=== PATIENT | female | born 1985 | race Caucasian/White ===

== ENCOUNTER 2017-10-31 17:00 | Emergency (ER) | payer OTHER ==
[~2017-10-31] VITALS: Ht 152.4 cm; Wt 51.5 kg
[~2017-10-31 17:00] MED LIST: ACET-1256 PO; ALBUAER19 INH; CERT200K IM; LEVO75TA5 PO
[2017-10-31] MEDS ORDERED: AMPH20TA2 PO (17:07)
[2017-10-31] MEDS ORDERED: ATV/1 PO (17:08)
[2017-10-31 17:11] VITALS: TEMP 37; Ht 152.4 cm; Wt 51.5 kg
[2017-10-31] MEDS ORDERED: ONDANSETRON INJ 2 MG/ML 2 ML VIAL IV STA ×2 (17:49→22:16)
[2017-10-31] MEDS ORDERED: HYDROmorphone INJ 0.5 MG/0.5 ML SYR IV STA (17:49)
[2017-10-31 18:21] LABS: BASO % 0.7 %; BASO ABS # 0.06 K/uL (0-0.2); EOS % 2.3 %; EOS ABS # 0.19 K/uL (0-0.5); HEMATOCRIT 27.9 % (37-47); HEMOGLOBIN 8.7 g/dL (12.0-16.0); IG# 0.01 K/uL (0.00-0.02); LYMPH % 26.4 %; LYMPH ABS # 2.19 K/uL (1.2-3.4); MEAN CELL VOLUME 70.1 fL (80-100); MEAN CORPUSCULAR HEMOGLOBIN 21.9 pg (25-34); MEAN CORPUSCULAR HGB CONC 31.2 g/dl (32-36); MEAN PLATELET VOLUME 9.2 fL (7.4-10.4); MONO % 8.4 %; NEUT % 62.1 %; NEUT ABS # 5.14 K/uL (1.4-6.5); PLATELET COUNT 362 K/uL (130-400); RED CELL DISTRIBUTION WIDTH SD 43.8 fL (36.4-46.3); WHITE BLOOD COUNT 8.29 K/uL (4.8-10.8)
[2017-10-31 18:44] LABS: ALT/SGPT 14 U/L (12-78); BLOOD UREA NITROGEN 7 mg/dl (7-18); CALCIUM 8.6 mg/dl (8.5-10.1); CARBON DIOXIDE 25 mmol/L (21-32); CREATININE 0.81 mg/dl (0.60-1.20); GLUCOSE 78 mg/dl (70-99); LIPASE 144 U/L (73-393); POTASSIUM 3.3 mmol/L (3.5-5.1); SODIUM 134 mmol/L (136-145)
[2017-10-31 18:47] LABS: ALKALINE PHOSPHATASE 67 U/L (45-117); AST/SGOT 16 U/L (15-37); TOTAL PROTEIN 9.1 gm/dl (6.4-8.2)
[2017-10-31] MEDS ORDERED: VNTHFA/IN INH (19:19)
[2017-10-31] MEDS ORDERED: AMIT10TA6 PO (19:19)
[2017-10-31] MEDS ORDERED: OPTIRAY 320 IV PRN (19:30)
[2017-10-31] MEDS ORDERED: SODIUM CHLORIDE 0.9% 1000ML 1,000 ML IV STA (20:27)
--- NOTE | 2017-10-31 20:30 | DIAGNOSTIC IMAGING REPORT ---
PELVIS W/IV CONT ONLY (CT) HISTORY: 32 years-old Female presents with perianal swelling and concern for possible perianal abscess. COMPARISON: CT abdomen and pelvis 06/17/2016 TECHNIQUE: Multiple axial CT images of the pelvis were obtained following the intravenous administration of 115 mL Optiray 320. A dose lowering technique was used consistent with the principals of PIERCE. FINDINGS: There is moderate circumferential wall thickening of the rectum and also within the imaged distal portion of the descending colon with mild surrounding inflammatory stranding. There is moderate stool volume of the cecum. The terminal ileum is predominantly collapsed. The appendix is air-filled and appears noninflamed as seen on image 77 series 3. Appendiceal tip is not well seen. Uterus and adnexa are unremarkable. No definite pathologic adenopathy. Iliac vessels appear unremarkable. There is moderate perirectal inflammatory stranding. 1.1 x 0.7 cm hypoechoic collection with peripheral enhancement is seen within the right posterior perianal soft tissues as seen on image 194 series 3. Additionally, there is a slightly larger 1.6 x 1.0 cm collection within the right medial gluteal fold as seen on image 219 series 3 suggesting small abscess formations. The bones appear intact. IMPRESSION: 1. Moderate circumferential wall thickening of the rectum and imaged distal descending colon is suspicious for inflammatory bowel disease. 2. Small peripherally enhancing fluid collections of the perianal tissues and medial right gluteal fold suggest small abscess formations. 3. Normal appearance of the appendix. The above report was generated using voice recognition software. It may contain grammatical, syntax or spelling errors. Electronically signed by: Charlie Quintanilla M.D. 10/31/2017 8:28 PM Dictated Date/Time: 10/31/2017 8:18 PM
[2017-10-31 22:00] VITALS: BP 83/61; PULSE 87; O2SAT 92
[2017-10-31] MEDS ORDERED: METRONIDAZOLE 250 MG TAB PO STA (22:16)
[2017-10-31] MEDS ORDERED: AMOX875T PO (22:26)
[2017-10-31] MEDS ORDERED: METR-162 PO (22:26)
[2017-10-31] MEDS ORDERED: ONDA4TAB65 PO (22:26)
[2017-10-31] MEDS ORDERED: OXYC1TAB3 PO (22:27)
[2017-10-31] MEDS ORDERED: AMOXICILLIN/CLAVULANATE TAB 875 MG TAB PO ONE (22:30)
[2017-10-31] MEDS ORDERED: OXYCODONE IR HOME PACK PO ONE (22:30)
[2017-10-31] MEDS ORDERED: ONDANSETRON HOME PACK 4MG OD TAB PO ONE (22:30)
--- NOTE | 2017-11-01 00:32 | EMERGENCY ROOM VISIT NOTE ---
History Report prepared by Stefan: Davian Haines Under the Supervision of: Dr. Derek Hinton D.O. First contact with patient: 17:31 Chief Complaint: WOUND INFECTION Stated Complaint: CROHNS COMPLICATION/PERIANAL ABSCESS History of Present Illness The patient is a 32 year old female who presents to the Emergency Room with complaints of a worsening perianal abscess beginning yesterday. She has a history of similar symptoms associated with Crohn's disease. She was diagnosed with Crohn's 18 years ago. The patient noticed her symptoms initially due to pain with wiping. She believes she actually had two abscess, but one of them has already drained. She is currently on Cimzia for her Crohn's (started eight years ago). The patient also complains of nausea and chills. Her LNMP was a few weeks ago. Pt denies headache, change in vision, fevers, chest pain, shortness of breath, vomiting, diarrhea, pain with urination, and melena. Source of History: patient Onset: yesterday Position: other (Perianal) Quality: other (abscess) Timing: worsening Associated Symptoms: + chills, + nausea, No fevers, No headache, No chest pain, No SOB, No vomiting, No melena, No diarrhea, No urinary symptoms Review of Systems See HPI for pertinent positives & negatives. A total of 10 systems reviewed and were otherwise negative. Past Medical & Surgical Medical Problems: (1) Anemia (2) Colitis (3) Crohns disease Surgical Problems: (1) Previous section Family History Diabetes mellitus Hypertension Kidney disease Kidney stones Social History Smoking Status: Former Smoker Alcohol Use: none Marital Status: in relationship Housing Status: lives with family Occupation Status: employed Current/Historical Medications Scheduled Acetaminophen (Tylenol), 1,000 MG PO prn ud Amitriptyline Hcl (Elavil), 10 MG PO HS Amoxicillin & Pot Clavulanate (Augmentin 875-125 mg), 875 MG PO BID Amphetamine-Dextroamphetamine 20MG (Adderall 20MG), 20 MG PO BID Certolizumab Pegol (Cimzia), 200 MG IM Q2 WEEKS Metronidazole (Flagyl), 500 MG PO TID Ondansetron Hcl (Zofran), 4 MG PO PRN Scheduled PRN Albuterol Hfa (Ventolin Hfa), 2 PUFFS INH Q6H PRN for ALLERGY/ASTHMA Lorazepam (Ativan), 1 MG PO BID PRN for ANXIETY Oxycodone Immediate Rel Tab (Roxicodone Ir), 5 MG PO Q6H PRN for Pain Allergies Coded Allergies: Iron Dextran (Verified Allergy, Severe, ANAPHYLAXIS, 10/31/17) Shellfish (Verified Allergy, Severe, ANAPHYLAXIS, 10/31/17) Methylprednisolone (Verified Allergy, Intermediate, HIVES, 10/31/17) Sulfa Antibiotics (Verified Allergy, Intermediate, RASH, 10/31/17) Latex1 -Allergic Contact Dermititis (Verified Allergy, Mild, RASH, 10/31/17) Infliximab (Verified Adverse Reaction, Severe, ANAPHYLAXIS, 10/31/17) medicine induced lupus NSAIDs (Verified Adverse Reaction, Intermediate, BLEEDING, 10/31/17) Morphine (Verified Adverse Reaction, Unknown, DOESNT WORK, 10/31/17) Physical Exam Vital Signs Date Time Temp Pulse Resp B/P (MAP) Pulse Ox O2 Delivery O2 Flow Rate FiO2 10/31/17 22:00 87 20 83/61 92 Room Air 10/31/17 20:00 89 20 92/57 98 10/31/17 18:17 103 16 100/63 100 Room Air 10/31/17 17:11 37.0 79 16 106/71 99 Room Air Physical Exam GENERAL: Sitting up in bed, alert, well appearing, well nourished, no distress, non-toxic EYE EXAM: normal conjunctiva. OROPHARYNX: no exudate, no erythema, lips, buccal mucosa, and tongue normal and mucous membranes are moist NECK: supple, no nuchal rigidity, no adenopathy, non-tender LUNGS: Clear to auscultation. Normal chest wall mechanics HEART: Tachycardic rate, no murmurs, S1 normal and S2 normal ABDOMEN: abdomen soft, non-tender, normo-active bowel sounds, no masses, no rebound or guarding. BACK: Back is symmetrical on inspection and there is no deformity, no midline tenderness, no CVA tenderness. RECTAL: multiple large rectal hemorrhoids with a 2 cm fluctuance mass draining green, purulent discharge (8 o clock). 1.5 cm firm, fluctuance mass without drainage (7 o clock). SKIN: no rashes and no bruising UPPER EXTREMITIES: upper extremities are grossly normal. LOWER EXTREMITIES: No pitting edema. NEURO EXAM: Normal sensorium, cranial nerves II-XII grossly intact, normal speech, no gross weakness of arms, no gross weakness of legs. Medical Decision & Procedures ER Provider Diagnostic Interpretation: Radiology results as stated below per my review and the radiologist's interpretation: PELVIS W/IV CONT ONLY (CT) FINDINGS: There is moderate circumferential wall thickening of the rectum and also within the imaged distal portion of the descending colon with mild surrounding inflammatory stranding. There is moderate stool volume of the cecum. The terminal ileum is predominantly collapsed. The appendix is air-filled and appears noninflamed as seen on image 77 series 3. Appendiceal tip is not well seen. Uterus and adnexa are unremarkable. No definite pathologic adenopathy. Iliac vessels appear unremarkable. There is moderate perirectal inflammatory stranding. 1.1 x 0.7 cm hypoechoic collection with peripheral enhancement is seen within the right posterior perianal soft tissues as seen on image 194 series 3. Additionally, there is a slightly larger 1.6 x 1.0 cm collection within the right medial gluteal fold as seen on image 219 series 3 suggesting small abscess formations. The bones appear intact. IMPRESSION: 1. Moderate circumferential wall thickening of the rectum and imaged distal descending colon is suspicious for inflammatory bowel disease. 2. Small peripherally enhancing fluid collections of the perianal tissues and medial right gluteal fold suggest small abscess formations. 3. Normal appearance of the appendix. The above report was generated using voice recognition software. It may contain grammatical, syntax or spelling errors. Electronically signed by: Charlie Quintanilla M.D. 10/31/2017 8:28 PM Laboratory Results 10/31/17 18:05 Red Blood Count 3.98, Mean Corpuscular Volume 70.1, Mean Corpuscular Hemoglobin 21.9, Mean Corpuscular Hemoglobin Concent 31.2, Mean Platelet Volume 9.2, Neutrophils (%) (Auto) 62.1, Lymphocytes (%) (Auto) 26.4, Monocytes (%) (Auto) 8.4, Eosinophils (%) (Auto) 2.3, Basophils (%) (Auto) 0.7, Neutrophils # (Auto) 5.14, Lymphocytes # (Auto) 2.19, Monocytes # (Auto) 0.70, Eosinophils # (Auto) 0.19, Basophils # (Auto) 0.06 10/31/17 17:42 Test 2/6/18 17:42 10/31/17 18:05 10/31/17 19:45 Anion Gap 7.0 mmol/L (3-11) Est Creatinine Clear Calc Drug Dose 71.6 ml/min Estimated GFR () 111.4 Estimated GFR (Non- 96.1 BUN/Creatinine Ratio 8.0 (10-20) Calcium Level 8.6 mg/dl (8.5-10.1) Total Bilirubin 0.2 mg/dl (0.2-1) Direct Bilirubin < 0.1 mg/dl (0-0.2) Aspartate Amino Transf (AST/SGOT) 16 U/L (15-37) Alanine Aminotransferase (ALT/SGPT) 14 U/L (12-78) Alkaline Phosphatase 67 U/L (45-117) Total Protein 9.1 gm/dl (6.4-8.2) Albumin 3.0 gm/dl (3.4-5.0) Lipase 144 U/L (73-393) White Blood Count 8.29 K/uL (4.8-10.8) Red Blood Count 3.98 M/uL (4.2-5.4) Hemoglobin 8.7 g/dL (12.0-16.0) Hematocrit 27.9 % (37-47) Mean Corpuscular Volume 70.1 fL (80-100) Mean Corpuscular Hemoglobin 21.9 pg (25-34) Mean Corpuscular Hemoglobin Concent 31.2 g/dl (32-36) Platelet Count 362 K/uL (130-400) Mean Platelet Volume 9.2 fL (7.4-10.4) Neutrophils (%) (Auto) 62.1 % Lymphocytes (%) (Auto) 26.4 % Monocytes (%) (Auto) 8.4 % Eosinophils (%) (Auto) 2.3 % Basophils (%) (Auto) 0.7 % Neutrophils # (Auto) 5.14 K/uL (1.4-6.5) Lymphocytes # (Auto) 2.19 K/uL (1.2-3.4) Monocytes # (Auto) 0.70 K/uL (0.11-0.59) Eosinophils # (Auto) 0.19 K/uL (0-0.5) Basophils # (Auto) 0.06 K/uL (0-0.2) RDW Standard Deviation 43.8 fL (36.4-46.3) RDW Coefficient of Variation 17.0 % (11.5-14.5) Immature Granulocyte % (Auto) 0.1 % Immature Granulocyte # (Auto) 0.01 K/uL (0.00-0.02) Hypochromasia PRESENT Microcytosis PRESENT Urine Color YELLOW Urine Appearance TURBID (CLEAR) Urine pH 5.5 (4.5-7.5) Urine Specific [place] 1.020 (1.000-1.030) Urine Protein NEG (NEG) Urine Glucose (UA) NEG (NEG) Urine Ketones NEG (NEG) Urine Occult Blood NEG (NEG) Urine Nitrite NEG (NEG) Urine Bilirubin NEG (NEG) Urine Urobilinogen NEG (NEG) Urine Leukocyte Esterase MODERATE (NEG) Urine WBC (Auto) >30 /hpf (0-5) Urine RBC (Auto) 0-4 /hpf (0-4) Urine Hyaline Casts (Auto) 0 /lpf (0-5) Urine Epithelial Cells (Auto) >30 /lpf (0-5) Urine Bacteria (Auto) 1+ (NEG) Urine Pathogenic Casts /lpf (0) Urine Mucus PRESENT (NONE PRSENT) Urine Test NEG (NEG) Laboratory results per my review. Medications Administered Medications (Trade) Dose Ordered Sig/Mark Route Start Time Stop Time Status Last Admin Dose Admin Hydromorphone HCl (Dilaudid Inj) 0.5 mg NOW STAT IV 10/31/17 17:49 10/31/17 17:50 DC 10/31/17 18:14 0.5 MG Ondansetron HCl (Zofran Inj) 4 mg NOW STAT IV 10/31/17 17:49 10/31/17 17:50 DC 10/31/17 18:14 4 MG Sodium Chloride 1,000 ml @ 999 mls/hr Q1H1M STAT IV 10/31/17 20:27 10/31/17 21:27 DC 10/31/17 20:58 999 MLS/HR Oxycodone HCl (Roxicodone Immediate Rel 5MG Home Pack) 1 homepack UD ONCE PO 10/31/17 22:30 10/31/17 22:31 DC 10/31/17 22:39 1 HOMEPACK Metronidazole (Flagyl Tab) 2,000 mg NOW STAT PO 10/31/17 22:16 10/31/17 22:19 DC 10/31/17 22:38 2,000 MG Amoxicillin/ Clavulanate Potassium (Augmentin Tab) 875 mg NOW ONCE PO 10/31/17 22:30 10/31/17 22:31 DC 10/31/17 22:38 875 MG Ondansetron HCl (Zofran Inj) 4 mg NOW STAT IV 10/31/17 22:16 10/31/17 22:18 DC 10/31/17 22:38 4 MG Ondansetron HCl (ZOFRAN ODT 4MG Home Pack) 1 homepack UD ONCE PO 10/31/17 22:30 10/31/17 22:31 DC 10/31/17 22:39 1 HOMEPACK Amoxicillin/ Clavulanate Potassium (Augmentin Tab) 875 mg BID ONCE PO 11/01/17 09:00 11/01/17 09:00 DC 10/31/17 22:54 875 MG ED Course ED COURSE: Vital signs were reviewed and appeared normal. The patients medical record was reviewed The above diagnostic studies were performed and reviewed. ED treatments and interventions as stated above. 1735: The patient was evaluated in room C7. A complete history and physical examination was performed. 1749: Ordered Zofran Inj 4 mg IV, Dilaudid Inj 0.5 mg IV. 7: Ordered Sodium Chloride 1000 ml @ 999 mls/hr IV. 2216: Ordered Zofran Inj 4 mg IV, Flagyl Tab 2000 mg PO. 2210: Upon reevaluation, the patient is resting comfortably.I discussed my findings with the patient and she understands and agrees with the treatment plan. Based on the patients age, coexisting illnesses, exam and lab findings the decision to treat as an outpatient was made. The patient remained stable while under my care. The patient appeared well at the time of discharge. 2230: Ordered Zofran Odt 4 mg home pack PO, Augmentin Tab 875 mg PO, Roxicodone Immediate Rel 5 mg home pack PO. Medical Decision Differential diagnoses includes but is not limited to gastritis, peptic ulcer disease, GERD, gallbladder disease, pancreatitis, small bowel obstruction, acute coronary syndrome, pericarditis, ischemic bowel, irritable bowel disease, irritable bowel syndrome, appendicitis, diverticulitis, malignancy, hernia, urinary tract infection, torsion, /ectopic , perforation, trauma, infectious. Patient is a 30-year-old female who presents to ER for rectal abscesses. On exam she has 2 abscesses which is currently draining. She notes she follows with [facility]. Labs were obtained and show no leukocytosis. Hemoglobin was 8.7. Previous were 11 over 2 years ago. BMP all LFTs, bilirubin lipase is normal. UA was contaminated. was negative. CT confirms the abscesses. Patient did not want anybody to drain her abscesses as she notes her GI doctor instructed her not to have this done. I did discuss the case with the on-call GI physician at [facility]. He notes that they will follow her up as an outpatient. He was unable to access her records to give me her previous hemoglobins. Patient was placed on Flagyl and Augmentin per her request. I stressed importance of following up and continuing sitz baths. If that abscess worsens she will need to return to have that opened. Discussed with Pt concerning signs and symptoms to watch out for. Pt was instructed to follow up with their PCP and discussed with the patient their option to return to the ED at anytime for persistent or worsening symptoms. The appropriate anticipatory guidance and out-patient management, including indications for return to the emergency department, were explained at length to the patient and understood. [place] Drug Monitoring Program Search Results: patient reviewed within database, no issues identified Medication Reconcilliation Current Medication List: was personally reviewed by me Blood Pressure Screening Patient's blood pressure: Normal blood pressure Blood pressure disposition: Did not require urgent referral Consults Time Called: 2154 Consulting Physician: [facility] Returned Call: [phone] I discussed the patient's case with [facility]. They recommend antibiotic treatment with close follow-up. Impression Primary Impression: Diane-rectal abscess Additional Impressions: Hypokalemia Anemia Scribe Attestation The scribe's documentation has been prepared under my direction and personally reviewed by me in its entirety. I confirm that the note above accurately reflects all work, treatment, procedures, and medical decision making performed by me. Departure Information Dispostion Home / Self-Care Prescriptions Oxycodone Immediate Rel Tab (ROXICODONE IR) 5 Mg Tab 5 MG PO Q6H Y for Pain, #15 TAB Prov: Derek Hinton, DO 10/31/17 Ondansetron Hcl (ZOFRAN) 4 Mg Tab 4 MG PO PRN, #30 TAB Prov: Derek Hinton, DO 10/31/17 Metronidazole (FLAGYL) 500 Mg Tab 500 MG PO TID, #10 TAB Prov: Derek Hinton, DO 10/31/17 Amoxicillin & Pot Clavulanate (Augmentin 875-125 mg) 1 Tab Tab 875 MG PO BID for 10 Days, TAB Prov: Derek Hinton, DO 10/31/17 Referrals No Doctor, Assigned (PCP) Forms HOME CARE DOCUMENTATION FORM, IMPORTANT VISIT INFORMATION, WORK / SCHOOL INSTRUCTIONS Patient Instructions ED Diane Anal Abscess Abx Only, [facility] Additional Instructions Please follow up with your primary care doctor with in the next 24 hours. Any worsening of your symptoms, please return to the ED immediately. This includes any fevers greater than 100.4, worsening pain, chest pain, shortness breath, persistent nausea, vomiting, unable to eat or drink, please keep using warm soaks or any other concerning signs or symptoms from your standpoint. Please call your GI physician tomorrow for follow-up within the next 2-3 days. Your hemoglobin is low at 8.9. Please follow up and have this repeated in the next 48 hours. Please take antibiotics as prescribed. Problem Qualifiers Additional Impressions: Anemia Anemia type: unspecified type Qualified Codes: D64.9 - Anemia, unspecified
[2017-11-01] MEDS ORDERED: AMOXICILLIN/CLAVULANATE TAB 875 MG TAB PO ONE (09:00)
== END 2017-10-31 22:57 | disposition home or self-care (01) ==
LOC: C.EDB 17:05 → C.EDC 22:57
DX: K61.1 Rectal abscess (principal); E87.6 Hypokalemia; D64.9 Anemia, unspecified; K50.90 Crohn's disease, unspecified, without complications; Z83.3 Family history of diabetes mellitus; Z82.49 Family history of ischemic heart disease and other diseases of the circulatory system; Z84.1 Family history of disorders of kidney and ureter; Z87.891 Personal history of nicotine dependence; Z79.899 Other long term (current) drug therapy

== ENCOUNTER 2017-11-09 00:46 | Emergency (ER) | payer OTHER ==
[~2017-11-09] VITALS: Ht 153.7 cm; Wt 51.9 kg
[~2017-11-09 00:46] MED LIST changes: -ALBUAER19 INH; +AMIT10TA6 PO; +AMOX875T PO; +AMPH20TA2 PO; +ATV/1 PO; -LEVO75TA5 PO; +METR-162 PO; +ONDA4TAB65 PO; +OXYC1TAB3 PO; +VNTHFA/IN INH
[2017-11-09 00:51] VITALS: TEMP 36.8; Ht 153.7 cm; Wt 51.9 kg
[2017-11-09] MEDS ORDERED: ONDANSETRON INJ 2 MG/ML 2 ML VIAL IV STA (01:24)
[2017-11-09 01:59] LABS: BASO % 1.2 %; BASO ABS # 0.09 K/uL (0-0.2); EOS % 3.1 %; EOS ABS # 0.24 K/uL (0-0.5); HEMATOCRIT 29.1 % (37-47); IG# 0.01 K/uL (0.00-0.02); LYMPH % 37.9 %; LYMPH ABS # 2.91 K/uL (1.2-3.4); MEAN CELL VOLUME 70.6 fL (80-100); MEAN CORPUSCULAR HEMOGLOBIN 21.8 pg (25-34); MEAN CORPUSCULAR HGB CONC 30.9 g/dl (32-36); MONO % 9.5 %; MONO ABS # 0.73 K/uL (0.11-0.59); NEUT % 48.2 %; PLATELET COUNT 502 K/uL (130-400); RED CELL DISTRIBUTION WIDTH CV 17.7 % (11.5-14.5); RED CELL DISTRIBUTION WIDTH SD 45.3 fL (36.4-46.3); WHITE BLOOD COUNT 7.68 K/uL (4.8-10.8)
[2017-11-09 02:09] VITALS: O2SAT 95
[2017-11-09 02:17] LABS: INFLUENZA B ANTIGEN Neg for Influ B (NEG)
[2017-11-09 02:17] LABS: ALT/SGPT 15 U/L (12-78); AST/SGOT 18 U/L (15-37); BLOOD UREA NITROGEN 8 mg/dl (7-18); CALCIUM 8.6 mg/dl (8.5-10.1); CARBON DIOXIDE 27 mmol/L (21-32); GLUCOSE 99 mg/dl (70-99); LIPASE 139 U/L (73-393); POTASSIUM 3.1 mmol/L (3.5-5.1); SODIUM 137 mmol/L (136-145)
[2017-11-09 02:19] LABS: ALKALINE PHOSPHATASE 64 U/L (45-117); TOTAL PROTEIN 9.4 gm/dl (6.4-8.2)
[2017-11-09] MEDS ORDERED: POTASSIUM CHLORIDE 10 MEQ TABCR PO STA (02:44)
--- NOTE | 2017-11-09 04:22 | EMERGENCY ROOM VISIT NOTE ---
History First contact with patient: :07 Chief Complaint: OTHER COMPLAINT Stated Complaint: PERIANAL ABCESS,CHILLS,SWEATS,LEG/ANKLE/ARMS HURT History of Present Illness The patient is a 32 year old female who presents to the Emergency Room with complaints of subjective fever and chills with lower leg swelling for the past few days she has been on antibiotics for perirectal abscess. She states she is feeling better over the perirectal abscess. She was getting upset stomach with the Augmentin and was informed to stop this and continue the Flagyl. Patient suffers from Crohn's disease and follows with [facility] in [place]. Patient has no documented temperature. Patient denies chest pain, dyspnea, cough, congestion, abdominal pain, vomiting, diarrhea, sore throat, runny nose, headache, neck stiffness, black or blood in her stool. Patient does suffer from anemia. She has required blood transfusions in the past. Review of Systems An 10 system review of systems was completed with positives and pertinent negatives listed in the HPI. Past Medical/Surgical History Medical Problems: (1) Anemia (2) Colitis (3) Crohns disease Surgical Problems: (1) Previous section Family History Diabetes mellitus Hypertension Kidney disease Kidney stones Social History Smoking Status: Never Smoker Alcohol Use: none Marital Status: in relationship Housing Status: lives with family Occupation Status: employed Current/Historical Medications Scheduled Acetaminophen (Tylenol), 1,000 MG PO prn ud Amitriptyline Hcl (Elavil), 10 MG PO HS Amoxicillin & Pot Clavulanate (Augmentin 875-125 mg), 875 MG PO BID Amphetamine-Dextroamphetamine 20MG (Adderall 20MG), 20 MG PO BID Certolizumab Pegol (Cimzia), 200 MG IM Q2 WEEKS Metronidazole (Flagyl), 500 MG PO TID Ondansetron Hcl (Zofran), 4 MG PO PRN Scheduled PRN Albuterol Hfa (Ventolin Hfa), 2 PUFFS INH Q6H PRN for ALLERGY/ASTHMA Lorazepam (Ativan), 1 MG PO BID PRN for ANXIETY Oxycodone Immediate Rel Tab (Roxicodone Ir), 5 MG PO Q6H PRN for Pain Physical Exam Vital Signs Date Time Temp Pulse Resp B/P (MAP) Pulse Ox O2 Delivery O2 Flow Rate FiO2 11/09/17 03:52 100 18 104/69 97 Room Air 11/09/17 02:42 60 16 86/75 96 Room Air 11/09/17 02:19 78 11/09/17 02:09 95 Room Air 11/09/17 00:51 36.8 79 18 111/76 100 Room Air Physical Exam VITALS: Vitals are noted on the nurse's note and reviewed by myself. Vital signs stable. GENERAL: Pleasant female mildly pale appearing, in no acute distress, nondiaphoretic, well-developed well-nourished. SKIN: The skin was without rashes, erythema, edema, or bruising. There is no tenting of the skin. Capillary reflex less than 2 seconds. HEAD: Normocephalic atraumatic. EARS: External auditory canals clear, tympanic membranes pearly castaneda without erythema or effusion bilaterally. EYES: Pupils equal round and reactive to light and accommodation. Conjunctivae without injection, sclerae without icterus. Extraocular movements intact. NOSE: Patent, turbinates without inflammation or discharge. No sinus tenderness. MOUTH: Mucous membranes mildly dry. Pharynx without erythema or exudate. Uvula midline. Airway patent. Tongue does not deviate. NECK: Supple without nuchal rigidity. No lymphadenopathy. No thyromegaly. Cervical spine is nontender. No JVD. HEART: Regular rate and rhythm without murmurs gallops or rubs. LUNGS: Clear to auscultation bilaterally without wheezes, rales or rhonchi. No dullness to percussion. No retractions or accessory muscle use. ABDOMEN: Positive bowel sounds x 4. Normal tympanic percussion. Soft, nontender, without masses or organomegaly. Peña sign negative. No guarding or rebound tenderness. No CVA tenderness Rectal exam: Numerous nonthrombosed hemorrhoids without palpable abscess. MUSCULOSKELETAL: No muscle atrophy, erythema, noted. Trace pedal edema bilaterally. NEURO: Patient was alert and oriented to person place and time. Normal sensation to light and sharp touch. No focal neurological deficits. Medical Decision & Procedures Laboratory Results 11/09/17 01:47 Red Blood Count 4.12, Mean Corpuscular Volume 70.6, Mean Corpuscular Hemoglobin 21.8, Mean Corpuscular Hemoglobin Concent 30.9, Mean Platelet Volume 9.0, Neutrophils (%) (Auto) 48.2, Lymphocytes (%) (Auto) 37.9, Monocytes (%) (Auto) 9.5, Eosinophils (%) (Auto) 3.1, Basophils (%) (Auto) 1.2, Neutrophils # (Auto) 3.70, Lymphocytes # (Auto) 2.91, Monocytes # (Auto) 0.73, Eosinophils # (Auto) 0.24, Basophils # (Auto) 0.09 11/09/17 01:47 Test 11/09/17 01:45 11/09/17 01:46 11/09/17 01:47 Bedside Lactic Acid Venous 0.50 mmol/L (0.90-1.70) Urine Color DK YELLOW Urine Appearance CLEAR (CLEAR) Urine pH 5.5 (4.5-7.5) Urine Specific Ventress 1.035 (1.000-1.030) Urine Protein NEG (NEG) Urine Glucose (UA) NEG (NEG) Urine Ketones TRACE (NEG) Urine Occult Blood NEG (NEG) Urine Nitrite POS (NEG) Urine Bilirubin NEG (NEG) Urine Urobilinogen NEG (NEG) Urine Leukocyte Esterase SMALL (NEG) Urine WBC (Auto) 1-5 /hpf (0-5) Urine RBC (Auto) 0-4 /hpf (0-4) Urine Hyaline Casts (Auto) 5-10 /lpf (0-5) Urine Epithelial Cells (Auto) >30 /lpf (0-5) Urine Bacteria (Auto) NEG (NEG) Influenza Type A Antigen Neg for Influ A (NEG) Influenza Type B Antigen Neg for Influ B (NEG) White Blood Count 7.68 K/uL (4.8-10.8) Red Blood Count 4.12 M/uL (4.2-5.4) Hemoglobin 9.0 g/dL (12.0-16.0) Hematocrit 29.1 % (37-47) Mean Corpuscular Volume 70.6 fL (80-100) Mean Corpuscular Hemoglobin 21.8 pg (25-34) Mean Corpuscular Hemoglobin Concent 30.9 g/dl (32-36) Platelet Count 502 K/uL (130-400) Mean Platelet Volume 9.0 fL (7.4-10.4) Neutrophils (%) (Auto) 48.2 % Lymphocytes (%) (Auto) 37.9 % Monocytes (%) (Auto) 9.5 % Eosinophils (%) (Auto) 3.1 % Basophils (%) (Auto) 1.2 % Neutrophils # (Auto) 3.70 K/uL (1.4-6.5) Lymphocytes # (Auto) 2.91 K/uL (1.2-3.4) Monocytes # (Auto) 0.73 K/uL (0.11-0.59) Eosinophils # (Auto) 0.24 K/uL (0-0.5) Basophils # (Auto) 0.09 K/uL (0-0.2) RDW Standard Deviation 45.3 fL (36.4-46.3) RDW Coefficient of Variation 17.7 % (11.5-14.5) Immature Granulocyte % (Auto) 0.1 % Immature Granulocyte # (Auto) 0.01 K/uL (0.00-0.02) Hypochromasia PRESENT Anisocytosis PRESENT Microcytosis PRESENT Anion Gap 7.0 mmol/L (3-11) Est Creatinine Clear Calc Drug Dose 74.4 ml/min Estimated GFR () 113.1 Estimated GFR (Non- 97.6 BUN/Creatinine Ratio 9.6 (10-20) Calcium Level 8.6 mg/dl (8.5-10.1) Magnesium Level 2.1 mg/dl (1.8-2.4) Total Bilirubin 0.2 mg/dl (0.2-1) Direct Bilirubin < 0.1 mg/dl (0-0.2) Aspartate Amino Transf (AST/SGOT) 18 U/L (15-37) Alanine Aminotransferase (ALT/SGPT) 15 U/L (12-78) Alkaline Phosphatase 64 U/L (45-117) Total Protein 9.4 gm/dl (6.4-8.2) Albumin 3.0 gm/dl (3.4-5.0) Lipase 139 U/L (73-393) Thyroid Stimulating Hormone (TSH) 10.700 uIu/ml (0.300-4.500) Free Thyroxine 1.09 ng/dl (0.80-1.60) Human Chorionic Gonadotropin, Qual NEG (NEG) Medications Administered Medications (Trade) Dose Ordered Sig/Mark Route Start Time Stop Time Status Last Admin Dose Admin Ondansetron HCl (Zofran Inj) 4 mg NOW STAT IV 11/09/17 01:24 11/09/17 01:26 DC 11/09/17 01:58 4 MG Potassium Chloride (Klor-Con M10) 40 meq NOW STAT PO 11/09/17 02:44 11/09/17 02:46 DC 11/09/17 03:52 40 MEQ ED Course Prior records/ancillary studies reviewed and summarized above. Nursing notes reviewed. The patient's history was concerning for subjective fever and chills with leg swelling. Differential diagnosis: Etiologies such as rectal infection, anemia, metabolic, infection, hypo/ hyperglycemia, electrolyte abnormalities, cardiac sources, intracerebral event, toxicologic, neurologic, as well as others were entertained. Physical examination: As above. ER treatment provided: IV Lock IV fluids On reassessment the patient felt better. Diagnostics interpretation by me: ECG: Normal sinus, normal intervals, no acute ST-T wave changes. Impression normal sinus rhythm interpreted by myself The labs revealed improving anemia per chart review, negative lactic acid. Slightly low protein level. Elevated TSH. Negative hCG Urine concerning for contamination and sent for culture Hypokalemia and this was replaced orally Imaging studies: US SOFT TISSUE: Comparison: CT pelvis 10/31/17. Superficial 2 x 0.9 x 1.9 cm complex ovoid region at right aspect of gluteal fold and there is associated prominent peripheral vascularity. This likely represents phlegmonous changes and /or residual abscess. No definite evidence of abscess at the distal rectum. Radiologist: Leonardo Ridley MD Exam and history seem consistent with resolving perirectal abscess with improving anemia and slightly abnormal thyroid. 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 She is advised to keep it. She is advised to follow-up family care for further evaluation and workup for her abnormal thyroid test. Patient did not have an acute abdomen on exam. She is well- appearing. I do not believe she has a DVT. Patient is agreeable to this. She was offered an ultrasound but declines this at this time. Patient did not have acute abdomen on exam. She was tolerating fluids. She is advised to increase her fluid and protein intake and to follow-up as scheduled with hematology and family care within the next few days or here in the ER sooner for fevers, chest pain, difficulty breathing, worsening signs or symptoms or as needed. Patient had no urinary symptoms. I do believe this is a contaminant. Patient will wait for the urine culture if she needs antibiotics. By the evaluation outlined above emergent etiologies such as electrolyte abnormalities, cardiac sources, intracerebral event, toxologic, neurologic, abnormalities blood glucose, metabolic, as well as others were deemed relatively unlikely. The pt informed about the findings as listed above. All questions were answered and pleased with the treatment. Return instructions were outlined and the patient was discharged in stable condition. Referral: The patient was referred back to primary care physician for follow-up in 2 to 3 days for a recheck of the current condition. Case reviewed with my attending Case reviewed with my attending Medical Decision As above Medication Reconcilliation Current Medication List: was personally reviewed by me Blood Pressure Screening Patient's blood pressure: Normal blood pressure Impression Primary Impression: Anemia Additional Impressions: Hypokalemia Thyroid function test abnormal Departure Information Dispostion Home / Self-Care Condition GOOD Referrals No Doctor, Assigned (PCP) Patient Instructions [facility] Additional Instructions Your thyroid test was abnormal. Follow-up with family care for this. Increase your fluid and protein intake. Rest and drink plenty of fluids as tolerated. Continue current medications. Avoid strenuous activities and anything that worsens your pain. Resume normal activities once your symptoms resolve. Return to the ER immediately for worsening or persistent chills, abdominal pain , vomiting, fevers, chest pains, difficulty breathing, worsening of your condition, or as needed. Follow up with your primary physician in 2-3 days for a recheck of your current condition. Problem Qualifiers Primary Impression: Anemia Anemia type: unspecified type Qualified Codes: D64.9 - Anemia, unspecified
[2017-11-09 04:35] VITALS: BP 100/69; PULSE 78; O2SAT 97
--- NOTE | 2017-11-09 06:34 | DIAGNOSTIC IMAGING REPORT ---
GLUTEAL/RECTAL ULTRASOUND CLINICAL HISTORY: ? Rectal abscess COMPARISON STUDY: CT of the pelvis November 10, 2017. FINDINGS: Sonography of the gluteal/perirectal regions demonstrated a 2 x 0.9 x 1.9 cm subcutaneous hypoechoic focus of the right inferior gluteal fold which corresponds to the inferior rim enhancing fluid collection shown and CT of October 31, 2017. This is similar in size to prior exam. This has peripheral hypervascularity with minimal internal vascularity. No additional fluid collections were identified on this exam. The perirectal and perianal soft tissues are suboptimally assessed by sonography. No additional abscesses were identified. IMPRESSION: 2 x 0.9 x 1.9 cm right inferior gluteal fold hypoechoic abnormality which likely corresponds to the rim-enhancing fluid collection shown on CT of October 31, 2017. This favors a small abscess. Perirectal and perianal soft tissues suboptimally assessed by sonography but no additional abscesses identified. Electronically signed by: Collin Agarwal M.D. 11/09/2017 6:32 AM Dictated Date/Time: 11/09/2017 6:29 AM
== END 2017-11-09 04:37 | disposition home or self-care (01) ==
LOC: C.EDB 00:48 → C.EDA 04:37
DX: D64.9 Anemia, unspecified (principal); E87.6 Hypokalemia; R94.6 Abnormal results of thyroid function studies; R50.9 Fever, unspecified; M79.89 Other specified soft tissue disorders; K50.90 Crohn's disease, unspecified, without complications; Z79.899 Other long term (current) drug therapy; Z82.49 Family history of ischemic heart disease and other diseases of the circulatory system; Z83.3 Family history of diabetes mellitus; Z84.1 Family history of disorders of kidney and ureter

== ENCOUNTER 2018-01-17 18:10 | Inpatient (IN) | payer OTHER ==
[~2018-01-17] VITALS: Ht 165.1 cm; Wt 58.4 kg
[~2018-01-17 18:10] MED LIST changes: -AMOX875T PO; -METR-162 PO; -ONDA4TAB65 PO
[2018-01-17] MEDS ORDERED: SODIUM CHLORIDE 0.9% 1000ML 1,000 ML IV ONE (18:20)
[2018-01-17] MEDS ORDERED: PIPERACILLIN/TAZOBACTAM 4.5 GM/100ML D5W IV STA (18:20)
[2018-01-17] MEDS ORDERED: DAPTOmycin IV 0 MG in SODIUM CHLORIDE 0.9% 50ML 50 ML IV STA (18:20)
[2018-01-17] MEDS ORDERED: SODIUM CHLORIDE 0.9% 150ML 150 ML IV STA (18:22)
[2018-01-17] MEDS ORDERED: SODIUM CHLORIDE 0.9% 500ML 500 ML IV STA (18:22)
[2018-01-17] MEDS ORDERED: ACETAMINOPHEN 500 MG TAB PO STA (18:23)
[2018-01-17] MEDS ORDERED: HYDROmorphone INJ 0.5 MG/0.5 ML SYR IV STA ×2 (18:36→20:01)
[2018-01-17] MEDS ORDERED: ONDANSETRON INJ 2 MG/ML 2 ML VIAL IV STA (18:36)
--- NOTE | 2018-01-17 18:53 | DIAGNOSTIC IMAGING REPORT ---
CHEST ONE VIEW PORTABLE CLINICAL HISTORY: Sepsis COMPARISON STUDY: Chest CT June 17, 2016. FINDINGS: Lung volumes are at the lower limits of normal. No pneumothorax or pleural effusion is noted. There is no consolidation or evidence for pulmonary edema. Cardiac size is normal. Mediastinal contours are normal. IMPRESSION: No acute cardiopulmonary findings. Electronically signed by: Collin Agarwal M.D. 01/17/2018 6:52 PM Dictated Date/Time: 01/17/2018 6:51 PM
[2018-01-17 18:56] LABS: BASO % 0.7 %; BASO ABS # 0.05 K/uL (0-0.2); EOS % 1.3 %; HEMATOCRIT 35.8 % (37-47); HEMOGLOBIN 11.6 g/dL (12.0-16.0); IG# 0.02 K/uL (0.00-0.02); INR 1.1 (0.9-1.1); LYMPH % 6.3 %; LYMPH ABS # 0.47 K/uL (1.2-3.4); MEAN CELL VOLUME 79.7 fL (80-100); MEAN CORPUSCULAR HEMOGLOBIN 25.8 pg (25-34); MEAN CORPUSCULAR HGB CONC 32.4 g/dl (32-36); MEAN PLATELET VOLUME 8.7 fL (7.4-10.4); NEUT % 87.4 %; NEUT ABS # 6.56 K/uL (1.4-6.5); PLATELET COUNT 261 K/uL (130-400); PTT PATIENT 29.5 SECONDS (21.0-31.0); RED CELL DISTRIBUTION WIDTH CV 19.6 % (11.5-14.5); RED CELL DISTRIBUTION WIDTH SD 56.5 fL (36.4-46.3)
[2018-01-17] MEDS ORDERED: OPTIRAY 320 IV PRN (19:00)
[2018-01-17] MEDS ORDERED: DAPTOmycin IV 275 MG in SYRINGE 0 ML IV SCH (19:00)
[2018-01-17 19:05] LABS: ALBUMIN 3.3 gm/dl (3.4-5.0); ALT/SGPT 17 U/L (12-78); AST/SGOT 19 U/L (15-37); BLOOD UREA NITROGEN 9 mg/dl (7-18); CALCIUM 8.6 mg/dl (8.5-10.1); CARBON DIOXIDE 27 mmol/L (21-32); GLUCOSE 96 mg/dl (70-99); POTASSIUM 3.7 mmol/L (3.5-5.1); SODIUM 133 mmol/L (136-145)
[2018-01-17 19:10] LABS: ALKALINE PHOSPHATASE 81 U/L (45-117); CKMB < 0.5 ng/ml (0.5-3.6); TOTAL PROTEIN 8.9 gm/dl (6.4-8.2)
--- NOTE | 2018-01-17 19:10 | EMERGENCY ROOM VISIT NOTE ---
History Report prepared by Stefan: Darian Putnam Under the Supervision of: Dr. Segundo Feliciano M.D. First contact with patient: 18:18 Chief Complaint: FEVER Stated Complaint: HAD SURGERY TODAY, FEVER,CHILLS,HEADACHE History of Present Illness The patient is a 33 year old female who presents to the Emergency Room with complaints of a worsening fever beginning an hour prior to arrival. The patient' s mother states the patient had rectal surgery in [place] this morning. She reports the patient has a history of severe Crohn's Disease and takes Cimzia. The mother notes the patient has not had her medication in a month because of changes in health care. She states the patient is not in a flare. The mother reports the patient was placed under general anesthesia and has not had an abnormal reaction to it before. She notes the patient developed severe chills in the car after eating lunch. The mother states the patient's fingers and lips became blue. She reports they returned home and the patient had a fever of 99.5. The mother notes she gave the patient Tylenol, covered her in blankets, and gave her 20 minutes for the Tylenol to work. She states the patient's temperature jaimie to 101.8. The mother reports the patient developed a headache, her teeth were chattering, and her blood pressure is low. The patient denies abdominal pain, neck pain, and any other pain. She notes she has not been on steroids for her Crohn's in several years. The patient states she has a history of a and surgery for her lazy eye. Source of History: patient, parent (mother) Onset: one hour [employer] Symptom Intensity: 101.8 Quality: other (fever) Timing: worsening Associated Symptoms: + headache, No neck pain, No abdominal pain Note: Associated symptom: blue lips and fingers, chattering teeth, low blood pressure Review of Systems See HPI for pertinent positives & negatives. A total of 10 systems reviewed and were otherwise negative. Past Medical & Surgical Medical Problems: (1) Anemia (2) Colitis (3) Crohns disease Surgical Problems: (1) Previous section Family History Diabetes mellitus Hypertension Kidney disease Kidney stones Social History Smoking Status: Never Smoker Alcohol Use: none Marital Status: in relationship Housing Status: lives with family Occupation Status: employed Current/Historical Medications Scheduled Acetaminophen (Tylenol), 1,000 MG PO prn ud Amitriptyline Hcl (Elavil), 10 MG PO HS Amphetamine-Dextroamphetamine 20MG (Adderall 20MG), 20 MG PO BID Certolizumab Pegol (Cimzia), 200 MG IM Q2 WEEKS Scheduled PRN Albuterol Hfa (Ventolin Hfa), 2 PUFFS INH Q6H PRN for ALLERGY/ASTHMA Lorazepam (Ativan), 1 MG PO BID PRN for ANXIETY Oxycodone Immediate Rel Tab (Roxicodone Ir), 5 MG PO Q6H PRN for Pain Allergies Coded Allergies: Iron Dextran (Verified Allergy, Severe, ANAPHYLAXIS, 01/17/18) Shellfish (Verified Allergy, Severe, ANAPHYLAXIS, 01/17/18) Methylprednisolone (Verified Allergy, Intermediate, HIVES, 01/17/18) Sulfa Antibiotics (Verified Allergy, Intermediate, RASH, 01/17/18) Latex1 -Allergic Contact Dermititis (Verified Allergy, Mild, RASH, 01/17/18 ) Infliximab (Verified Adverse Reaction, Severe, ANAPHYLAXIS, 01/17/18) medicine induced lupus NSAIDs (Verified Adverse Reaction, Intermediate, BLEEDING, 01/17/18) Morphine (Verified Adverse Reaction, Unknown, DOESNT WORK, 01/17/18) Physical Exam Vital Signs Date Time Temp Pulse Resp B/P (MAP) Pulse Ox O2 Delivery O2 Flow Rate FiO2 01/17/18 21:31 90/57 01/17/18 21:16 97/60 01/17/18 21:10 113 13 97 01/17/18 21:01 97/60 01/17/18 20:46 89/53 01/17/18 20:40 115 15 93 01/17/18 20:31 92/59 01/17/18 20:16 37.6 121 15 95/62 95 Room Air 01/17/18 20:16 95/62 01/17/18 20:10 122 18 97 01/17/18 20:01 92/63 01/17/18 19:46 94/61 01/17/18 19:40 126 17 99 01/17/18 19:31 99/58 01/17/18 19:26 37.9 118 15 98/60 95 Room Air 01/17/18 19:16 98/60 01/17/18 19:13 108/64 01/17/18 19:13 122 01/17/18 18:49 100 Room Air 01/17/18 18:46 105/64 01/17/18 18:40 128 18 85 01/17/18 18:38 111/73 01/17/18 18:34 98/76 01/17/18 18:15 38.9 84 18 96/64 100 Room Air Physical Exam GENERAL: Awake, alert, well-appearing, in no acute distress HENT: Normocephalic, atraumatic. Oropharynx unremarkable. EYES: Normal conjunctiva. Sclera non-icteric. NECK: Supple. No nuchal rigidity. FROM. No JVD. No evidence of meningitis or encephalitis. RESPIRATORY: Clear to auscultation. CARDIAC: Regular rate, normal rhythm. Extremities warm and well perfused. Pulses equal. ABDOMEN: Soft, non-distended. No tenderness to palpation. No rebound or guarding. No masses. RECTAL: Performed in the presence of a female nurse. Stent was in place. Light amount of yellowish drainage from the stent. Surgical site was clean and intact. MUSCULOSKELETAL: Chest examination reveals no tenderness. The back is symmetrical on inspection without obvious abnormality. There is no CVA tenderness to palpation. No joint edema. LOWER EXTREMITIES: Calves are equal size bilaterally and non-tender. No edema. No discoloration. NEURO: Normal sensorium. No sensory or motor deficits noted. SKIN: No rash or jaundice noted. Medical Decision & Procedures ER Provider Diagnostic Interpretation: Radiology results as stated below per my review and radiologist interpretation: CHEST ONE VIEW PORTABLE CLINICAL HISTORY: Sepsis COMPARISON STUDY: Chest CT June 17, 2016. FINDINGS: Lung volumes are at the lower limits of normal. No pneumothorax or pleural effusion is noted. There is no consolidation or evidence for pulmonary edema. Cardiac size is normal. Mediastinal contours are normal. IMPRESSION: No acute cardiopulmonary findings. Electronically signed by: Collin Agarwal M.D. 01/17/2018 6:52 PM Dictated Date/Time: 01/17/2018 6:[address] OF THE ABDOMEN AND PELVIS WITH CONTRAST CLINICAL HISTORY: Sepsis. Fever. Chills. Status post rectal surgery today. COMPARISON STUDY: CT of the abdomen and pelvis June 17, [address] of the pelvis October 31, 2017. TECHNIQUE: Following IV administration of 116 mL of Optiray-320, axial images of the abdomen and pelvis were obtained from the lung bases to the proximal femurs. Images were reviewed in the axial, sagittal, and coronal planes. IV contrast was administered without complication. A dose lowering technique was utilized adhering to the principles of ALARA. CT DOSE: 366.07 mGycm FINDINGS: No pneumatosis, free air or portal venous gas is present. The liver, spleen, adrenal glands, kidneys and pancreas are normal. There is no biliary or pancreatic ductal dilatation. There is no evidence for a bowel obstruction. The appendix is normal. Note is made of moderate wall thickening with pericolonic infiltration involving the mid to distal descending colon as well as the sigmoid colon and rectum. This is similar to exam of October 31, 2017. There are a few prominent perirectal lymph nodes. There has been interval placement of a linear radiodensity along the posterior aspect at the anorectal junction suggestive of a seton which is just to the right of midline. This extends through a tiny 1.8 x 0.8 cm subcutaneous fluid collection of the medial fold of the right buttock. This seton appears appropriately positioned. This may reflect a tiny abscess or fistula. This was shown on previous exam of October 31, 2017. There is a dominant follicle within the left ovary. There are no suspicious osseous lesions. IMPRESSION: 1. Interval placement of a right perianal seton which extends through a tiny 1.8 x 0.8 cm subcutaneous fluid collection of the medial fold of the right buttock which may reflect a fistula or tiny abscess. Seton likely appropriately positioned. 2. No bowel obstruction. No pneumatosis, free air or portal venous gas. 3. Persistent wall thickening and pericolonic infiltration of the descending colon, sigmoid colon and rectum which favors inflammatory bowel disease. No significant change in appearance since exam of October 31, 2017. Electronically signed by: Collin Agarwal M.D. 01/17/2018 7:23 PM Dictated Date/Time: 01/17/2018 7:15 PM Laboratory Results 01/17/18 18:25 Red Blood Count 4.49, Mean Corpuscular Volume 79.7, Mean Corpuscular Hemoglobin 25.8, Mean Corpuscular Hemoglobin Concent 32.4, Mean Platelet Volume 8.7, Neutrophils (%) (Auto) 87.4, Lymphocytes (%) (Auto) 6.3, Monocytes (%) (Auto) 4.0, Eosinophils (%) (Auto) 1.3, Basophils (%) (Auto) 0.7, Neutrophils # (Auto) 6.56, Lymphocytes # (Auto) 0.47, Monocytes # (Auto) 0.30, Eosinophils # (Auto) 0.10, Basophils # (Auto) 0.05 01/17/18 18:25 Test 01/17/18 18:25 01/17/18 18:36 01/17/18 19:18 White Blood Count 7.50 K/uL (4.8-10.8) Red Blood Count 4.49 M/uL (4.2-5.4) Hemoglobin 11.6 g/dL (12.0-16.0) Hematocrit 35.8 % (37-47) Mean Corpuscular Volume 79.7 fL (80-100) Mean Corpuscular Hemoglobin 25.8 pg (25-34) Mean Corpuscular Hemoglobin Concent 32.4 g/dl (32-36) Platelet Count 261 K/uL (130-400) Mean Platelet Volume 8.7 fL (7.4-10.4) Neutrophils (%) (Auto) 87.4 % Lymphocytes (%) (Auto) 6.3 % Monocytes (%) (Auto) 4.0 % Eosinophils (%) (Auto) 1.3 % Basophils (%) (Auto) 0.7 % Neutrophils # (Auto) 6.56 K/uL (1.4-6.5) Lymphocytes # (Auto) 0.47 K/uL (1.2-3.4) Monocytes # (Auto) 0.30 K/uL (0.11-0.59) Eosinophils # (Auto) 0.10 K/uL (0-0.5) Basophils # (Auto) 0.05 K/uL (0-0.2) RDW Standard Deviation 56.5 fL (36.4-46.3) RDW Coefficient of Variation 19.6 % (11.5-14.5) Immature Granulocyte % (Auto) 0.3 % Immature Granulocyte # (Auto) 0.02 K/uL (0.00-0.02) Prothrombin Time 11.3 SECONDS (9.0-12.0) Prothromb Time International Ratio 1.1 (0.9-1.1) Activated Partial Thromboplast Time 29.5 SECONDS (21.0-31.0) Partial Thromboplastin Ratio 1.1 Anion Gap 6.0 mmol/L (3-11) Est Creatinine Clear Calc Drug Dose 63.9 ml/min Estimated GFR () 97.4 Estimated GFR (Non- 84.0 BUN/Creatinine Ratio 10.6 (10-20) Calcium Level 8.6 mg/dl (8.5-10.1) Total Bilirubin 0.2 mg/dl (0.2-1) Aspartate Amino Transf (AST/SGOT) 19 U/L (15-37) Alanine Aminotransferase (ALT/SGPT) 17 U/L (12-78) Alkaline Phosphatase 81 U/L (45-117) Total Creatine Kinase 61 U/L (26-192) Creatine Kinase MB < 0.5 ng/ml (0.5-3.6) Creatine Kinase MB Ratio (0-3.0) Troponin I < 0.015 ng/ml (0-0.045) Total Protein 8.9 gm/dl (6.4-8.2) Albumin 3.3 gm/dl (3.4-5.0) Globulin 5.6 gm/dl (2.5-4.0) Albumin/Globulin Ratio 0.6 (0.9-2) Human Chorionic Gonadotropin, Qual NEG (NEG) Bedside Lactic Acid Venous 0.92 mmol/L (0.90-1.70) Influenza Type A Antigen Neg for Influ A (NEG) Influenza Type B Antigen Neg for Influ B (NEG) Labs reviewed by ED physician. Medications Administered Medications (Trade) Dose Ordered Sig/Mark Route Start Time Stop Time Status Last Admin Dose Admin Sodium Chloride 1,000 ml @ 999 mls/hr Q1H1M ONCE IV 01/17/18 18:20 01/17/18 19:20 DC 01/17/18 18:35 999 MLS/HR Piperacillin Sod/ Tazobactam Sod (Zosyn Iv) 4.5 gm ONE STAT IV 01/17/18 18:20 01/17/18 18:23 DC 01/17/18 18:40 4.5 GM Sodium Chloride 150 ml @ 999 mls/hr Q10M STAT IV 01/17/18 18:22 01/17/18 18:31 DC 01/17/18 18:35 999 MLS/HR Sodium Chloride 500 ml @ 999 mls/hr Q31M STAT IV 01/17/18 18:22 4/25/18 18:52 DC 01/17/18 18:35 999 MLS/HR Acetaminophen (Tylenol Tab) 1,000 mg NOW STAT PO 01/17/18 18:23 01/17/18 18:24 DC 01/17/18 18:41 1,000 MG Hydromorphone HCl (Dilaudid Inj) 0.5 mg NOW STAT IV 01/17/18 18:36 01/17/18 18:43 DC 01/17/18 19:23 0.5 MG Ondansetron HCl (Zofran Inj) 4 mg NOW STAT IV 01/17/18 18:36 01/17/18 18:43 DC 01/17/18 19:23 4 MG Daptomycin 275 mg/ Syringe 5.5 ml @ 2.75 mls/ min 1900 IV 01/17/18 19:00 01/17/18 19:01 DC 01/17/18 19:12 2.75 MLS/MIN Sodium Chloride 1,000 ml @ 125 mls/hr Q8H STAT IV 01/17/18 19:19 01/18/18 03:18 01/17/18 19:24 125 MLS/HR Hydromorphone HCl (Dilaudid Inj) 0.5 mg NOW STAT IV 01/17/18 20:01 01/17/18 20:02 DC 01/17/18 20:12 0.5 MG ECG Per My Interpretation Indication: other (sepsis) Rate (beats per minute): 113 Rhythm: sinus tachycardia Findings: other (No ST elevation or depression. Normal axis) ED Course 1818: Past medical records reviewed. The patient was evaluated in room A11A. A complete history and physical examination was performed. 1820: Ordered Zosyn 4.5gm IV, Sodium Chloride 1000 ml @ 999 mls/hr IV 1822: Ordered Sodium Chloride 500 ml @ 999 mls/hr IV, Sodium Chloride 150 ml @ 999 mls/hr IV 1823: Ordered Acetaminophen 1000mg PO 1836: Ordered Ondansetron HCl 4mg IV, Hydromorphone HCl 0.5mg IV 1848: I discussed the patient's case with Dr. Cormier, Anesthesia. He states be aware of muscle rigidity and break down of muscle in the patient's urine. I noted the patient did not have these symptoms. 1850: I discussed the patient's case with Dr. Galindo, Colorectal Surgeon. She accepted the patient for transfer and further evaluation. 0: Ordered Daptomycin 275mg/Syringe 5.5 ml @ 2.75 mls/min Protocol IV 1918: Ordered Sodium Chloride 1000 ml @ 125 mls/hr IV 1999: I reevaluated the patient. She is requesting more pain medication. 2000: Ordered Hydromorphone HCl 0.5mg IV 2010: I received a call back from Dr. Galindo, Colorectal Surgeon. She states she will no longer accept the patient. She believes it is a SIRS reaction and the patient may be sent home. The transfer was cancelled. 2013: I reevaluated the patient and discussed my consult with her and her mother. The mother is disappointed in the surgeon's decision. 2020: I discussed the patient's case with Dr. Ortiz, [facility] Hospitalist. He suggests I contact ICU. 2023: I discussed the patient's case with Dr. Lemus, ICU. He will evaluate the patient for further management and care. 2025: I discussed my consults with the patient and her mother. They are in agreement with the treatment plan. The patient will be evaluated for further management and care. 2042: Dr. Lemus evaluated the patient. He will accept the patient and consult the hospitalist. Medical Decision Differential diagnosis: Etiologies such as sepsis, UTI, pneumonia, metabolic, electrolyte abnormalities , cardiac sources, intracerebral event, toxicologic, neurologic, as well as others were entertained. This is a 33-year-old female that presents the emergency department febrile hypotensive and tachycardic after having surgery earlier today. Due to the nature of the patient's presentation of sepsis alert was immediately initiated. Patient was given 30 mL's per kilogram of fluid normal saline. A lactic acid was obtained. The patient does not have an elevation in her white blood cell count and a CAT scan of the abdomen and pelvis does not show any acute process. I did discuss this patient's results with her surgeon production analyst at [facility] who initially accepted the patient however on-call back is now refusing to take the patient despite the patient still being febrile tachycardic and hypotensive. For this reason I did discuss the case with the hospitalist here as well as the health coach who agreed to have the patient admitted. Patient and family were in agreement with the treatment plan. Medication Reconcilliation Current Medication List: was personally reviewed by me Blood Pressure Screening Patient's blood pressure: Low blood pressure Monitored by hospitalist and transfer team. Consults Time Called: 1847 Consulting Physician: Dr. Cormier, Anesthesia Returned Call: 1847 I discussed the patient's case with Zach Arnold. He states be aware of muscle rigidity and break down of muscle in the patient's urine. I noted the patient did not have these symptoms. Additional Consults: Time Called: 1841 Consulted Physician: Dr. Galindo, Colorectal Surgeon Returned Call: 1849 Additional Comments: I discussed the patient's case with Dr. Galindo, Colorectal Surgeon. She accepted the patient for transfer and further evaluation. 2010: I received a call back from Dr. Galindo, Colorectal Surgeon. She states she will no longer accept the patient. She believes it is a SIRS reaction and the patient may be sent home. The transfer was cancelled. Time Called: 2018 Consulted Physician: Yanci Vides Hospitalist Returned Call: 2020 Additional Comments: I discussed the patient's case with Yanci Vides Hospitalist. He suggests I contact ICU. Impression Primary Impression: Sepsis Scribe Attestation The scribe's documentation has been prepared under my direction and personally reviewed by me in its entirety. I confirm that the note above accurately reflects all work, treatment, procedures, and medical decision making performed by me. Departure Information Dispostion Being Evaluated By Hospitalist Referrals Nito Moseley M.D. (PCP) Patient Instructions My [facility] Sepsis Post Crystalloid Evaluation Date: Jan 17, 2018 Time: 18:19 Capillary Refill Exam Delayed (2 seconds or longer) Cardiopulmonary Evaluation Lung Exam: chest non-tender, lungs clear, normal breath sounds, no respiratory distress, no accessory muscle use Heart Exam: no edema, no gallop, no JVD, no murmur, + tachycardia Passive Leg Raise Negative (normal) Peripheral Pulse Evaluation Bounding, Increased Skin Exam Unremarkable Vitals Last Vital Signs Documentation Date Time Temp Pulse Resp B/P (MAP) Pulse Ox O2 Delivery O2 Flow Rate FiO2 01/17/18 21:31 90/57 01/17/18 21:10 113 13 97 01/17/18 20:16 37.6 Room Air Presence Of Septic Shock Problem Qualifiers Primary Impression: Sepsis Sepsis type: sepsis due to unspecified organism Qualified Codes: A41.9 - Sepsis, unspecified organism
[2018-01-17] MEDS ORDERED: SODIUM CHLORIDE 0.9% 1000ML 1,000 ML IV STA (19:19)
--- NOTE | 2018-01-17 19:25 | DIAGNOSTIC IMAGING REPORT ---
CT OF THE ABDOMEN AND PELVIS WITH CONTRAST CLINICAL HISTORY: Sepsis. Fever. Chills. Status post rectal surgery today. COMPARISON STUDY: CT of the abdomen and pelvis June 17, [address] of the pelvis October 31, 2017. TECHNIQUE: Following IV administration of 116 mL of Optiray-320, axial images of the abdomen and pelvis were obtained from the lung bases to the proximal femurs. Images were reviewed in the axial, sagittal, and coronal planes. IV contrast was administered without complication. A dose lowering technique was utilized adhering to the principles of ALARA. CT DOSE: 366.07 mGycm FINDINGS: No pneumatosis, free air or portal venous gas is present. The liver, spleen, adrenal glands, kidneys and pancreas are normal. There is no biliary or pancreatic ductal dilatation. There is no evidence for a bowel obstruction. The appendix is normal. Note is made of moderate wall thickening with pericolonic infiltration involving the mid to distal descending colon as well as the sigmoid colon and rectum. This is similar to exam of October 31, 2017. There are a few prominent perirectal lymph nodes. There has been interval placement of a linear radiodensity along the posterior aspect at the anorectal junction suggestive of a seton which is just to the right of midline. This extends through a tiny 1.8 x 0.8 cm subcutaneous fluid collection of the medial fold of the right buttock. This seton appears appropriately positioned. This may reflect a tiny abscess or fistula. This was shown on previous exam of October 31, 2017. There is a dominant follicle within the left ovary. There are no suspicious osseous lesions. IMPRESSION: 1. Interval placement of a right perianal seton which extends through a tiny 1.8 x 0.8 cm subcutaneous fluid collection of the medial fold of the right buttock which may reflect a fistula or tiny abscess. Seton likely appropriately positioned. 2. No bowel obstruction. No pneumatosis, free air or portal venous gas. 3. Persistent wall thickening and pericolonic infiltration of the descending colon, sigmoid colon and rectum which favors inflammatory bowel disease. No significant change in appearance since exam of October 31, 2017. Electronically signed by: Collin Agarwal M.D. 01/17/2018 7:23 PM Dictated Date/Time: 01/17/2018 7:15 PM
[2018-01-17 19:51] LABS: INFLUENZA B ANTIGEN Neg for Influ B (NEG)
--- NOTE | 2018-01-17 21:24 | Critical Care Consultation ---
Critical Care Consultation Date of Consultation: Jan 17, 2018. Attending Physician: Segundo Feliciano Reason for Consultation: Sepsis alert History of Present Illness Patient is a 33-year-old female with significant past medical history for Crohn' s disease who underwent a operative procedure today in [place] at [facility]. She presented to the emergency department secondary to a fever and increasing pain. She was evaluated as a sepsis alert secondary to tachycardia and relative hypotension. She received a fluid bolus, blood cultures, CT scan of the abdomen and pelvis which I have reviewed. The patient reports that she is on a disease modifying reagin however she has not taken it within the last month due to insurance changes. She normally gets her care at [facility] secondary to originally being diagnosed at about the age of 16 and referral to [place] secondary to lack of pediatric gastroenterology specialist. Reported procedure was dilation of significant amount of rectal scar tissue, the patient reports that she could only pass pencil size stools, drainage of a known perirectal abscess and placement of a seton. Currently the patient denies chest pain, she does admit to fever, she is having increasing pain in the rectal area. Her biggest concern is that she does not want to diet she has never felt this poorly before. I was asked to evaluate the patient for possible sepsis etiology. Of note the ED physician did contact the [facility] surgeon for possible transfer given the recent procedure and transfer was denied by the surgeon. Patient also reports that the current pain is not synonymous with her prior Crohn's flares. Past Medical/Surgical History Crohn's disease Family History Diabetes mellitus Hypertension Kidney disease Kidney stones Social History Smoking Status: Never Smoker Marital Status: in relationship Housing Status: lives with family Occupation Status: employed Allergies Coded Allergies: Iron Dextran (Verified Allergy, Severe, ANAPHYLAXIS, 01/17/18) Shellfish (Verified Allergy, Severe, ANAPHYLAXIS, 01/17/18) Methylprednisolone (Verified Allergy, Intermediate, HIVES, 01/17/18) Sulfa Antibiotics (Verified Allergy, Intermediate, RASH, 01/17/18) Latex1 -Allergic Contact Dermititis (Verified Allergy, Mild, RASH, 01/17/18 ) Infliximab (Verified Adverse Reaction, Severe, ANAPHYLAXIS, 01/17/18) medicine induced lupus NSAIDs (Verified Adverse Reaction, Intermediate, BLEEDING, 01/17/18) Morphine (Verified Adverse Reaction, Unknown, DOESNT WORK, 01/17/18) Home Medications Scheduled Acetaminophen (Tylenol), 1,000 MG PO prn ud Amitriptyline Hcl (Elavil), 10 MG PO HS Amphetamine-Dextroamphetamine 20MG (Adderall 20MG), 20 MG PO BID Certolizumab Pegol (Cimzia), 200 MG IM Q2 WEEKS Scheduled PRN Albuterol Hfa (Ventolin Hfa), 2 PUFFS INH Q6H PRN for ALLERGY/ASTHMA Lorazepam (Ativan), 1 MG PO BID PRN for ANXIETY Oxycodone Immediate Rel Tab (Roxicodone Ir), 5 MG PO Q6H PRN for Pain Current Inpatient Medications Current Inpatient Medications Medications (Trade) Dose Ordered Sig/Mark Route Start Time Stop Time Status Last Admin Dose Admin Ioversol (Optiray 320) 100 ml UD PRN IV 01/17/18 19:00 01/21/18 18:59 Sodium Chloride 1,000 ml @ 125 mls/hr Q8H STAT IV 01/17/18 19:19 01/18/18 03:18 01/17/18 19:24 125 MLS/HR Review of Systems A 10 point review of systems has been obtained and is otherwise negative. Constitutional: + fever, + chills, + sweats, + problem reported (Reiger's) Respiratory: No cough, No sputum, No wheezing, No shortness of breath, No dyspnea on exertion, No dyspnea at rest Cardiovascular: No chest pain, No orthopnea, No PND, No edema, No claudication , No palpitations, No problem reported Abdomen: + pain, No nausea, No vomiting, No diarrhea, No constipation Musculoskeletal: No joint pain, No muscle pain, No swelling, No calf pain, No problem reported Genitourinary - Female: No dysuria, No urinary frequency, No urinary urgency, No urinary incontinence, No urinary retention, No hematuria, No dysmenorrhea, No menorrhagia, No metrorrhagia, No rash, No vaginal bleeding, No vaginal discharge, No vaginal itching, No vulvodynia, No , No problem reported Neurologic: No memory loss, No paralysis, No weakness, No numbness/tingling, No vertigo, No balance problems, No problem reported Psychiatric: No depression symptoms, No anhedonism, No anxiety, No insomnia, No substance abuse, No problem reported Hematologic / Lymphatic: No abnormal bleeding/bruising, No clotting problems, No swollen lymph nodes, No night sweats, No problem reported Physical Exam Date Time Temp Pulse Resp B/P (MAP) Pulse Ox O2 Delivery O2 Flow Rate FiO2 01/17/18 20:16 37.6 121 15 95/62 95 Room Air 01/17/18 19:26 37.9 118 15 98/60 95 Room Air 01/17/18 19:13 122 01/17/18 18:49 100 Room Air 01/17/18 18:15 38.9 84 18 96/64 100 Room Air General: Alert. nontoxic. Skin: Warm to touch, dry, Head: Atraumatic Ears, nose, mouth and throat: airway patent Cardiovascular: Normal peripheral perfusion Respiratory: no respiratory distress Gastrointestinal: Non distended Musculoskeletal: No deformity Rectal exam completed in the presence of Antonella Simco: Placement of seton, no evidence of cellulitis surrounding the seton, no evidence of bleeding, no evidence of purulent drainage. Of note there are significant hemorrhoids Laboratory Results Last 24 Hours Test 01/17/18 18:25 01/17/18 18:36 01/17/18 19:18 White Blood Count 7.50 K/uL Red Blood Count 4.49 M/uL Hemoglobin 11.6 g/dL Hematocrit 35.8 % Mean Corpuscular Volume 79.7 fL Mean Corpuscular Hemoglobin 25.8 pg Mean Corpuscular Hemoglobin Concent 32.4 g/dl Platelet Count 261 K/uL Mean Platelet Volume 8.7 fL Neutrophils (%) (Auto) 87.4 % Lymphocytes (%) (Auto) 6.3 % Monocytes (%) (Auto) 4.0 % Eosinophils (%) (Auto) 1.3 % Basophils (%) (Auto) 0.7 % Neutrophils # (Auto) 6.56 K/uL Lymphocytes # (Auto) 0.47 K/uL Monocytes # (Auto) 0.30 K/uL Eosinophils # (Auto) 0.10 K/uL Basophils # (Auto) 0.05 K/uL RDW Standard Deviation 56.5 fL RDW Coefficient of Variation 19.6 % Immature Granulocyte % (Auto) 0.3 % Immature Granulocyte # (Auto) 0.02 K/uL Prothrombin Time 11.3 SECONDS Prothromb Time International Ratio 1.1 Activated Partial Thromboplast Time 29.5 SECONDS Partial Thromboplastin Ratio 1.1 Sodium Level 133 mmol/L Potassium Level 3.7 mmol/L Chloride Level 100 mmol/L Carbon Dioxide Level 27 mmol/L Anion Gap 6.0 mmol/L Blood Urea Nitrogen 9 mg/dl Creatinine 0.90 mg/dl Est Creatinine Clear Calc Drug Dose 63.9 ml/min Estimated GFR () 97.4 Estimated GFR (Non- 84.0 BUN/Creatinine Ratio 10.6 Random Glucose 96 mg/dl Calcium Level 8.6 mg/dl Total Bilirubin 0.2 mg/dl Aspartate Amino Transf (AST/SGOT) 19 U/L Alanine Aminotransferase (ALT/SGPT) 17 U/L Alkaline Phosphatase 81 U/L Total Creatine Kinase 61 U/L Creatine Kinase MB < 0.5 ng/ml Creatine Kinase MB Ratio Troponin I < 0.015 ng/ml Total Protein 8.9 gm/dl Albumin 3.3 gm/dl Globulin 5.6 gm/dl Albumin/Globulin Ratio 0.6 Human Chorionic Gonadotropin, Qual NEG Bedside Lactic Acid Venous 0.92 mmol/L Influenza Type A Antigen Neg for Influ A Influenza Type B Antigen Neg for Influ B Diagnostic Results IMPRESSION: 1. Interval placement of a right perianal seton which extends through a tiny 1.8 x 0.8 cm subcutaneous fluid collection of the medial fold of the right buttock which may reflect a fistula or tiny abscess. Seton likely appropriately positioned. 2. No bowel obstruction. No pneumatosis, free air or portal venous gas. 3. Persistent wall thickening and pericolonic infiltration of the descending colon, sigmoid colon and rectum which favors inflammatory bowel disease. No significant change in appearance since exam of October 31, 2017. Assessment & Plan Fever -This is likely secondary to being post procedure -Patient had disruption of significant amount of scar tissue and rectum -Underwent drainage of perirectal abscess -Placement of seton -Possibly underwent MAC anesthesia -I do not feel that the patient is currently septic, her lactic acid is normal, her blood pressure is consistent with prior blood pressure readings in prior ED visit records -The patient has not been taking her medications for over a month and I think certainly think she can mount an adequate immune response I discussed this opinion with both the hospitalist as well as the emergency room physician. At this point I do not feel the patient needs additional critical care needs please feel free to contact us with any additional questions
[2018-01-17] MEDS ORDERED: ALBUTEROL HFA 8 GM INHALER INH PRN (21:45)
[2018-01-17] MEDS ORDERED: POLYETHYLENE (MIRALAX) 17 GM PACK PO PRN (21:45)
[2018-01-17] MEDS ORDERED: LORAZEPAM 1 MG TAB PO PRN (21:45)
[2018-01-17] MEDS ORDERED: ALUMINUM/MAGNESIUM/SIMETH (MAALOX MAX) 30 ML UDC PO PRN (21:45)
[2018-01-17] MEDS ORDERED: ACETAMINOPHEN 325 MG TAB PO PRN (21:45)
[2018-01-17] MEDS ORDERED: PIPERACILL/TAZOBAC CONSULT ACTIVE PRN ×2 (21:45→23:00)
[2018-01-17] MEDS ORDERED: NITROGLYCERIN 0.4 MG SL PER TAB CHARGE SL PRN (21:45)
[2018-01-17 23:04] VITALS: BP 91/62; PULSE 120; TEMP 37.8; O2SAT 97; Ht 165.1 cm; Wt 58.4 kg
--- NOTE | 2018-01-17 23:10 | HISTORY & PHYSICAL EXAMINATION ---
DATE OF ADMISSION: 01/17/2018 CHIEF COMPLAINT: Fever. HISTORY OF PRESENT ILLNESS: This is a 33-year-old female with past medical history significant for severe chron's disease rectovaginal fistula, hypothyroidism, presents with fever and chills. The patient hqad a procedure done in [facility] today, where she follows for Crohn's disease. She had a right perianal seton placed and she got discharged and before she came to the home, she started feeling chilly . She thought her fingers turned somewhat blue. She went home and has temperature spike and she took Tylenol, but temperature was not breaking in. She was brought into the ER. Initially sepsis alert was called in as she was tachycardic and somewhat hypotensive, but CAT scan abdomen and pelvis was unremarkable. No white count. Lactic acid is normal. The patient , somewhat tachycardic at times, had a temp spike in the ER too. ER physician tried to call [facility] surgeon on-call, but they refused to accept the patient, they thought that the patient has SIRS. Also evaluated by critical care in the ER and thought her presentation mostly form reported procedure of dilatation of significant amount of rectal scar tissue and most likely not septic. Currently , patient is resting comfortably. Has some headaches. Denies any cough. No earache. No runny nose. No chest pain. No shortness of breath. No nausea, no vomiting, no abdominal pain except for some mild discomfort at procedure site. Denies any blood in the stool. No swelling in the legs. PAST MEDICAL HISTORY: As mentioned above. MEDICATIONS: The patient is on albuterol 2 inhalations 4 times daily as needed, Elavil 10 mg p.o. at bedtime, hydrocodone/acetaminophen 5/325 mg 1 tablet every 6 hours p.r.n., levothyroxine 75 mcg p.o. daily, Cimzia 200 mg IM q. 2 weeks. FAMILY HISTORY: Significant for mother had heart disorder, anxiety, thyroid disorder. Father has high cholesterol. SOCIAL HISTORY: Former smoker, quit in 2012, smoked half-pack for 7 years. No alcohol use. No drug use. REVIEW OF SYMPTOMS: As per HPI. Rest of review of symptoms negative. PHYSICAL EXAMINATION: GENERAL: The patient is of moderate build, not in distress. VITAL SIGNS: Temperature 38.9, pulse 118, respiratory rate 15, blood pressure 98/60, oxygen 95% on room air. HEENT: No pallor, no icterus. Pupils equal, round, reactive to light. NECK: No JVD, no neck masses, no carotid bruit. CARDIOVASCULAR: S1, S2 heard. Tachycardia. No murmurs. RESPIRATORY SYSTEM: Clear to auscultation bilaterally. No accessory muscle use. No wheezing. No crackles. ABDOMEN: Soft, bowel sounds present. Nontender. No distention. CENTRAL NERVOUS SYSTEM: Cranial nerves II-XII are grossly intact, nonfocal. EXTREMITIES: No edema, no erythema. LABS: WBC 7.5, hemoglobin 11.6, hematocrit 33.8, platelets 261. PT 11.3, INR 1.1, APTT 29.5. Sodium 133, potassium 3.7, chloride 100, bicarbonate 27, BUN 9, creatinine 0.9, serum glucose 96. Point of care lactic acid 0.9, calcium 8.6, total bilirubin 0.2, AST 19, ALT 17, alkaline phosphatase 81, total creatinine kinase 61. Troponin I less than 0.015. HCG negative. Influenza A and B negative. Chest x-ray, no acute findings seen. CT of the abdomen and pelvis, interval placement of the right perianal seton, which extends through a tiny 1.5 x 0.8 cm subcutaneous fluid collection of the medial floor of the right buttock. This may reflect a fistula or tiny abscesses. Seton likely appropriately positioned. No bowel obstruction, no pneumatosis, free air, or portal vein gas. Persistent wall thickening and pericolonic infiltration of descending colon, sigmoid colon, rectum, which favors inflammatory bowel disease. EKG: Shows sinus tachycardia with rate of 113. No acute ST changes seen. ASSESSMENT AND PLAN: This is 33-year-old female presents with SIRS. 1. SIRS, possible sepsis with temp spike and tachycardia, but lactic acid is normal. No elevation of white count. Patient has history of Crohn's disease,. At [facility] today seton placed for perianal abscess and also dilatation of the rectal scar tissue. The fever with SIRS could be possibly from the procedure, but we will empirically place on IV Zosyn. will repeat lactic acid. IV fluids and close monitor. follow blood cx. 2. History of Crohn's disease. Continue home medications. 3. DVT prophylaxis. SCDs and TEDs. 4. Disposition: Admit to tele floor. Expect discharge to home and follow with family doctor. Level 1 full code. MTDD
[2018-01-17] MEDS: OXYCODONE HCL IR 5 MG TAB (IMMEDIATE RELEASE) PO PRN (23:54)
[2018-01-17] MEDS: ONDANSETRON INJ 2 MG/ML 2 ML VIAL IV PRN (23:58)
[2018-01-17] MEDS: SODIUM CHLORIDE 0.9% 1000ML 1,000 ML IV SCH (23:59)
[2018-01-18] VITALS (9 sets, daily range): BP systolic 83–97; BP diastolic 51–63; PULSE 84–98; TEMP 36.8–37.4; O2SAT 97–99
[2018-01-18] MEDS ORDERED: PIPERACILL/TAZOBAC IV 3.375 GM in DEXTROSE 5% 100ML 100 ML IV SCH ×2
[2018-01-18] MEDS: PIPERACILL/TAZOBAC IV 3.375 GM in SODIUM CHLORIDE 0.9% 100ML 100 ML IV SCH ×4 (00:35→23:39)
[2018-01-18] MEDS: LEVOTHYROXINE 75 MCG TAB PO SCH (05:47)
[2018-01-18 06:50] LABS: BASO ABS # 0.06 K/uL (0-0.2); EOS % 0.7 %; EOS ABS # 0.02 K/uL (0-0.5); HEMATOCRIT 31.9 % (37-47); HEMOGLOBIN 10.1 g/dL (12.0-16.0); IG# 0.01 K/uL (0.00-0.02); LYMPH % 14.1 %; LYMPH ABS # 0.43 K/uL (1.2-3.4); MEAN CELL VOLUME 80.6 fL (80-100); MEAN CORPUSCULAR HEMOGLOBIN 25.5 pg (25-34); MEAN CORPUSCULAR HGB CONC 31.7 g/dl (32-36); MEAN PLATELET VOLUME 8.8 fL (7.4-10.4); MONO % 10.5 %; MONO ABS # 0.32 K/uL (0.11-0.59); NEUT % 72.4 %; NEUT ABS # 2.22 K/uL (1.4-6.5); PLATELET COUNT 197 K/uL (130-400); RED CELL DISTRIBUTION WIDTH CV 19.3 % (11.5-14.5); RED CELL DISTRIBUTION WIDTH SD 56.1 fL (36.4-46.3); WHITE BLOOD COUNT 3.06 K/uL (4.8-10.8)
[2018-01-18 07:31] LABS: CALCIUM 7.6 mg/dl (8.5-10.1); CREATININE 0.72 mg/dl (0.60-1.20); POTASSIUM 3.3 mmol/L (3.5-5.1)
[2018-01-18] MEDS: SODIUM CHLORIDE 0.9% 1000ML 1,000 ML IV SCH ×3 (07:44→22:26)
[2018-01-18] MEDS: OXYCODONE HCL IR 5 MG TAB (IMMEDIATE RELEASE) PO PRN ×3 (07:44→23:39)
[2018-01-18] MEDS: AMPHETAMINE ASP/SULF/DEXTRAMPH 20 MG TAB PO SCH ×2 (09:18→20:45)
[2018-01-18] MEDS ORDERED: POTASSIUM CHLORIDE 10 MEQ TABCR PO STA (10:28)
[2018-01-18] MEDS: ONDANSETRON INJ 2 MG/ML 2 ML VIAL IV PRN (11:12)
--- NOTE | 2018-01-18 17:42 | Progress Note ---
Medicine Progress Note Date & Time of Visit: Jan 18, 2018 at 17:42. Subjective Patient doing well, only complains of a headache this AM; denies any photophobia or blurry vision. No overnight events noted. Tolerating PO but states she does not have much of an appetite. Complains of having soreness of her anus from the recent surgery. No BM. No N/V. No other complaints. Objective Last 8 Hrs Date Time Temp Pulse Resp B/P (MAP) Pulse Ox O2 Delivery O2 Flow Rate FiO2 01/18/18 16:00 99 Room Air 01/18/18 15:05 36.8 84 16 94/61 (72) 99 Room Air 01/18/18 15:00 99 Room Air 01/18/18 12:00 Room Air 01/18/18 11:09 37.4 92 19 90/56 (67) 99 Room Air Physical Exam: GENERAL: Patient is in no acute distress. HEENT: No acute trauma, normocephalic, mucous membranes moist, no nasal congestion, no scleral icterus. NECK: No stridor, trachea is midline. LUNGS: Clear to auscultation bilaterally, no wheeze, no rhonchi, breath sounds equal. HEART: Without murmurs gallops or rubs, regular rate and rhythm. ABDOMEN: Soft, nontender, bowel sounds positive EXTREMITIES: No cyanosis or edema, full range of motion of all the extremities without pain or difficulty, no signs for acute trauma. NEUROLOGIC: Oriented x 3, no acute motor or sensory deficits, no focal weakness. SKIN: No rash, no jaundice, no diaphoresis. Laboratory Results: Last 24 Hours Test 01/17/18 18:25 01/17/18 18:36 01/17/18 19:18 01/17/18 23:21 White Blood Count 7.50 K/uL Red Blood Count 4.49 M/uL Hemoglobin 11.6 g/dL Hematocrit 35.8 % Mean Corpuscular Volume 79.7 fL Mean Corpuscular Hemoglobin 25.8 pg Mean Corpuscular Hemoglobin Concent 32.4 g/dl Platelet Count 261 K/uL Mean Platelet Volume 8.7 fL Neutrophils (%) (Auto) 87.4 % Lymphocytes (%) (Auto) 6.3 % Monocytes (%) (Auto) 4.0 % Eosinophils (%) (Auto) 1.3 % Basophils (%) (Auto) 0.7 % Neutrophils # (Auto) 6.56 K/uL Lymphocytes # (Auto) 0.47 K/uL Monocytes # (Auto) 0.30 K/uL Eosinophils # (Auto) 0.10 K/uL Basophils # (Auto) 0.05 K/uL RDW Standard Deviation 56.5 fL RDW Coefficient of Variation 19.6 % Immature Granulocyte % (Auto) 0.3 % Immature Granulocyte # (Auto) 0.02 K/uL Prothrombin Time 11.3 SECONDS Prothromb Time International Ratio 1.1 Activated Partial Thromboplast Time 29.5 SECONDS Partial Thromboplastin Ratio 1.1 Sodium Level 133 mmol/L Potassium Level 3.7 mmol/L Chloride Level 100 mmol/L Carbon Dioxide Level 27 mmol/L Anion Gap 6.0 mmol/L Blood Urea Nitrogen 9 mg/dl Creatinine 0.90 mg/dl Est Creatinine Clear Calc Drug Dose 63.9 ml/min Estimated GFR () 97.4 Estimated GFR (Non- 84.0 BUN/Creatinine Ratio 10.6 Random Glucose 96 mg/dl Calcium Level 8.6 mg/dl Total Bilirubin 0.2 mg/dl Aspartate Amino Transf (AST/SGOT) 19 U/L Alanine Aminotransferase (ALT/SGPT) 17 U/L Alkaline Phosphatase 81 U/L Total Creatine Kinase 61 U/L Creatine Kinase MB < 0.5 ng/ml Creatine Kinase MB Ratio Troponin I < 0.015 ng/ml Total Protein 8.9 gm/dl Albumin 3.3 gm/dl Globulin 5.6 gm/dl Albumin/Globulin Ratio 0.6 Human Chorionic Gonadotropin, Qual NEG Bedside Lactic Acid Venous 0.92 mmol/L Influenza Type A Antigen Neg for Influ A Influenza Type B Antigen Neg for Influ B Lactic Acid Level 0.7 mmol/L Test 01/18/18 00:00 01/18/18 06:19 Urine Color YELLOW Urine Appearance CLEAR Urine pH 5.5 Urine Specific [place] 1.020 Urine Protein NEG Urine Glucose (UA) NEG Urine Ketones NEG Urine Occult Blood NEG Urine Nitrite NEG Urine Bilirubin NEG Urine Urobilinogen NEG Urine Leukocyte Esterase NEG Urine WBC (Auto) 1-5 /hpf Urine RBC (Auto) 0-4 /hpf Urine Hyaline Casts (Auto) 0 /lpf Urine Epithelial Cells (Auto) 10-20 /lpf Urine Bacteria (Auto) NEG White Blood Count 3.06 K/uL Red Blood Count 3.96 M/uL Hemoglobin 10.1 g/dL Hematocrit 31.9 % Mean Corpuscular Volume 80.6 fL Mean Corpuscular Hemoglobin 25.5 pg Mean Corpuscular Hemoglobin Concent 31.7 g/dl Platelet Count 197 K/uL Mean Platelet Volume 8.8 fL Neutrophils (%) (Auto) 72.4 % Lymphocytes (%) (Auto) 14.1 % Monocytes (%) (Auto) 10.5 % Eosinophils (%) (Auto) 0.7 % Basophils (%) (Auto) 2.0 % Neutrophils # (Auto) 2.22 K/uL Lymphocytes # (Auto) 0.43 K/uL Monocytes # (Auto) 0.32 K/uL Eosinophils # (Auto) 0.02 K/uL Basophils # (Auto) 0.06 K/uL RDW Standard Deviation 56.1 fL RDW Coefficient of Variation 19.3 % Immature Granulocyte % (Auto) 0.3 % Immature Granulocyte # (Auto) 0.01 K/uL Sodium Level 137 mmol/L Potassium Level 3.3 mmol/L Chloride Level 107 mmol/L Carbon Dioxide Level 25 mmol/L Anion Gap 5.0 mmol/L Blood Urea Nitrogen 6 mg/dl Creatinine 0.72 mg/dl Est Creatinine Clear Calc Drug Dose 100.0 ml/min Estimated GFR () 127.5 Estimated GFR (Non- 110.0 BUN/Creatinine Ratio 8.3 Random Glucose 93 mg/dl Calcium Level 7.6 mg/dl Magnesium Level 1.8 mg/dl Thyroid Stimulating Hormone (TSH) 0.583 uIu/ml Date/Time Source Procedure Growth Status 01/17/18 18:30 Blood Blood Culture Pending Received 01/17/18 18:25 Blood Blood Culture Pending Received Assessment & Plan SIRS: -not likely sepsis -Tmax 37.4 for today; last temp spike on 01/17 -normal lactic acid -no leukocytosis -on empiric zosyn -was at [facility] yesterday, for procedure and the SIRS could possibly be from the procedure -repeat lactic acid negative -IV fluids continued -follow blood cultures CROHN's DISEASE: -continue home medications -s/p seton placement for perianal abscess, dilation of rectal scar tissue--> Sitz baths and perry wash as needed Current Inpatient Medications: Current Inpatient Medications Medications (Trade) Dose Ordered Sig/Mark Route Start Time Stop Time Status Last Admin Dose Admin Ioversol (Optiray 320) 100 ml UD PRN IV 01/17/18 19:00 01/21/18 18:59 Sodium Chloride 1,000 ml @ 125 mls/hr Q8H IV 01/17/18 23:00 02/16/18 22:59 01/18/18 14:38 125 MLS/HR Acetaminophen (Tylenol Tab) 650 mg Q4H PRN PO 01/17/18 21:45 02/16/18 21:44 01/18/18 09:45 650 MG Al Hydrox/Mg Hydrox/Simethicone (Maalox Max Susp) 15 ml Q4H PRN PO 01/17/18 21:45 02/16/18 21:44 Ondansetron HCl (Zofran Inj) 4 mg Q6H PRN IV 01/17/18 21:45 02/16/18 21:44 01/18/18 11:12 4 MG Nitroglycerin (Nitrostat Tab) 0.4 mg UD PRN SL 01/17/18 21:45 02/16/18 21:44 Polyethylene (Miralax Powder Packet) 17 gm DAILY PRN PO 01/17/18 21:45 02/16/18 21:44 Albuterol (Ventolin Hfa Inhaler) 2 puffs Q6H PRN INH 01/17/18 21:45 02/16/18 21:44 Amitriptyline HCl (Elavil Tab) 10 mg HS PO 01/18/18 21:00 02/17/18 20:59 Amphetamine Aspartate/ Amphetam Sulf (Amphetamine Aspartate/Amph Sulf/Dextramphet) 20 mg BID PO 01/18/18 09:00 02/01/18 08:59 01/18/18 09:18 20 MG Lorazepam (Ativan Tab) 1 mg BID PRN PO 01/17/18 21:45 02/16/18 21:44 Oxycodone HCl (Roxicodone Immediate Rel Tab) 5 mg Q6H PRN PO 01/17/18 21:45 01/31/18 21:44 01/18/18 16:35 5 MG Miscellaneous Information (Order Awaiting Action) 1 ea QS N/A 01/18/18 00:00 02/17/18 00:00 01/18/18 00:08 1 EA Miscellaneous Information (Consult) 1 ea UD PRN N/A 01/17/18 21:45 02/16/18 21:44 Levothyroxine Sodium (Synthroid Tab) 75 mcg DAILYBB PO 01/18/18 06:00 02/17/18 06:59 01/18/18 05:47 75 MCG Piperacillin Sod/ Tazobactam Sod 3.375 gm/Sodium Chloride 115 ml @ 28.75 mls/ hr Q8H IV 01/18/18 00:00 01/27/18 17:59 01/18/18 16:25 28.75 MLS/HR
[2018-01-18] MEDS ORDERED: HYDROmorphone INJ 0.5 MG/0.5 ML SYR IV STA (19:13)
[2018-01-18] MEDS ORDERED: AMITRIPTYLINE HCL 10 MG TAB PO SCH (21:00)
[2018-01-19] VITALS: O2SAT 97
[2018-01-19 04:00] VITALS: BP 97/64; PULSE 82; TEMP 37.2; O2SAT 98
[2018-01-19] MEDS: LEVOTHYROXINE 75 MCG TAB PO SCH (06:02)
[2018-01-19] MEDS: SODIUM CHLORIDE 0.9% 1000ML 1,000 ML IV SCH (06:02)
[2018-01-19] MEDS: OXYCODONE HCL IR 5 MG TAB (IMMEDIATE RELEASE) PO PRN (06:03)
[2018-01-19 06:40] LABS: BASO % 0.4 %; BASO ABS # 0.02 K/uL (0-0.2); EOS % 3.4 %; EOS ABS # 0.16 K/uL (0-0.5); HEMOGLOBIN 9.4 g/dL (12.0-16.0); IG# 0.01 K/uL (0.00-0.02); LYMPH ABS # 0.95 K/uL (1.2-3.4); MEAN CELL VOLUME 80.3 fL (80-100); MEAN CORPUSCULAR HGB CONC 32.4 g/dl (32-36); MONO % 9.9 %; MONO ABS # 0.47 K/uL (0.11-0.59); NEUT % 66.1 %; NEUT ABS # 3.13 K/uL (1.4-6.5); PLATELET COUNT 174 K/uL (130-400); RED CELL DISTRIBUTION WIDTH CV 18.9 % (11.5-14.5); RED CELL DISTRIBUTION WIDTH SD 55.6 fL (36.4-46.3); WHITE BLOOD COUNT 4.74 K/uL (4.8-10.8)
[2018-01-19 07:14] LABS: CALCIUM 7.5 mg/dl (8.5-10.1); CREATININE 0.67 mg/dl (0.60-1.20); POTASSIUM 3.7 mmol/L (3.5-5.1)
[2018-01-19 08:00] VITALS: O2SAT 97
[2018-01-19 09:00] VITALS: BP 90/56; PULSE 80; TEMP 37.5; O2SAT 96
[2018-01-19] MEDS: PIPERACILL/TAZOBAC IV 3.375 GM in SODIUM CHLORIDE 0.9% 100ML 100 ML IV SCH (09:18)
[2018-01-19] MEDS: AMPHETAMINE ASP/SULF/DEXTRAMPH 20 MG TAB PO SCH (09:24)
[2018-01-19] MEDS ORDERED: AMPI500C9 PO (11:39)
--- NOTE | 2018-01-19 11:50 | Discharge Instructions ---
Discharge Instructions Date of Service Jan 19, 2018. Admission Reason for Admission: Sepsis Discharge Discharge Diagnosis / Problem: SIRS post procedure, perirectal abscess Discharge Goals Goal(s): Diagnostic testing, Therapeutic intervention Activity Recommendations Activity Limitations: resume your previous activity . Instructions / Follow-Up Instructions / Follow-Up Please see Dr. Moseley at [facility] office on January 24 at 12:45 PM ; please call the office if this appointment does not work or if you need to be rescheduled Please follow up with GI and Surgery as previously discussed Current Hospital Diet Patient's current hospital diet: Regular Diet Discharge Diet Recommended Diet: Regular Diet Pending Studies Studies pending at discharge: yes List of pending studies: Awaiting finalization of blood cultures Medical Emergencies . Who to Call and When: Medical Emergencies: If at any time you feel your situation is an emergency, please call 911 immediately. . Non-Emergent Contact Non-Emergency issues call your: Primary Care Provider, Warranty Manager, Surgeon Call Non-Emergent contact if: you have a fever, your pain is not controlled, wound has increased drainage, wound has increased pain . . "Provider Documentation" section prepared by Billie Sharma. .
[2018-01-19 12:00] VITALS: O2SAT 97
[2018-01-19 12:06] VITALS: BP 90/56; PULSE 80; TEMP 37.5; O2SAT 96
== END 2018-01-19 12:51 | disposition home or self-care (01) | DRG 864 ==
LOC: C.EDB 18:11 → C.2T 21:36 → UNDOADMIN 21:36 → ENRESERV 22:23 → CANRESERV 01-19 09:20 → CANBEDREQ 01-19 10:51
PROVIDERS: ADMIT Internal Medicine; ATTEND Internal Medicine
DX: R50.82 Postprocedural fever (principal); K50.90 Crohn's disease, unspecified, without complications; K61.0 Anal abscess; R00.0 Tachycardia, unspecified; I95.9 Hypotension, unspecified; Z98.890 Other specified postprocedural states; E03.9 Hypothyroidism, unspecified; Z87.718 Personal history of other specified (corrected) congenital malformations of genitourinary system; Z87.738 Personal history of other specified (corrected) congenital malformations of digestive system; Z87.891 Personal history of nicotine dependence; Z79.899 Other long term (current) drug therapy; Z91.040 Latex allergy status; Z88.2 Allergy status to sulfonamides; Z88.5 Allergy status to narcotic agent; Z88.6 Allergy status to analgesic agent; Z88.8 Allergy status to other drugs, medicaments and biological substances; Z91.013 Allergy to seafood; Z82.49 Family history of ischemic heart disease and other diseases of the circulatory system; Z83.49 Family history of other endocrine, nutritional and metabolic diseases; Z81.8 Family history of other mental and behavioral disorders; Z83.3 Family history of diabetes mellitus; Z84.1 Family history of disorders of kidney and ureter

== ENCOUNTER → 2018-01-30 | Outpatient (CLI) | payer OTHER | END | disposition home or self-care (01) | LOC: C.LAB 16:36 | PROVIDERS: ATTEND Family Medicine | DX: E03.9 Hypothyroidism, unspecified (principal) ==